=== PATIENT | female | born 1970 | race Caucasian/White ===

== ENCOUNTER → 2017-04-04 | Outpatient (CLI) | payer OTHER ==
[~2017-04-04] MED LIST: ACET325T14 PO; SUMA100T4 PO
[2017-04-04 11:00] LABS: ASPARTATE AMINO TRANSFERASE 17 U/L (15-37); BLOOD UREA NITROGEN 16 mg/dL (7-18)
== END | disposition home or self-care (01) ==
LOC: STAR 10:01
PROVIDERS: ATTEND Urology
DX: Z01.818 Encounter for other preprocedural examination (principal); N39.3 Stress incontinence (female) (male)
CPT/HCPCS: 36415; 80053; 81003; 87086

== ENCOUNTER 2017-04-11 13:27 | Observation (INO) | payer OTHER ==
[~2017-04-11] VITALS: Ht 172.7 cm; Wt 62.0 kg
[2017-04-11] MEDS ORDERED: LACTATED RINGERS 1,000 ML IV SCH (13:37)
[2017-04-11 13:56] VITALS: BP 108/72
[2017-04-11 14:20] LABS: HCG UR LOT HCG7030192
[2017-04-11 14:31] LABS: HCG UR OBC PASS
[2017-04-11] MEDS ORDERED: ESTROGENS CONJUGATED VAG CRM 0.625MG/1G, 30GM ONE (15:29)
[2017-04-11] MEDS ORDERED: AMPICILLIN 2 GM ONE (15:29)
[2017-04-11] MEDS ORDERED: LIDOCAINE/PF 1%, 30ML ONE ×2 (15:29→16:17)
[2017-04-11] MEDS ORDERED: BUPIVACAINE/PF 0.5% ONE (15:29)
[2017-04-11] MEDS ORDERED: NEOMY/POLYMYXIN B GU IRR. 1 ML IRRIG ONE (15:30)
[2017-04-11] MEDS ORDERED: EPINEPHRINE 1 MG/ML, 1ML ONE ×2 (15:30→16:17)
[2017-04-11] MEDS ORDERED: THROMBIN 5,000 UNIT VIAL TP ONE (15:30)
[2017-04-11] MEDS ORDERED: GENTAMICIN 80 MG/2 ML ONE (15:31)
[2017-04-11] MEDS ORDERED: HYDROmorphone 1 MG/ML, 1ML ONE (16:20)
[2017-04-11] MEDS ORDERED: FENTANYL PF 100 MCG/2ML ONE ×2 (16:20)
[2017-04-11] MEDS ORDERED: MIDAZOLAM 1 MG/ML, 2ML ONE (16:20)
[2017-04-11] MEDS ORDERED: LIDOCAINE GEL 2%, 5ML ONE (16:24)
[2017-04-11] MEDS ORDERED: PROPOFOL 10 MG/ML, 20ML ONE (16:25)
[2017-04-11] MEDS ORDERED: ONDANSETRON 2MG/ML, 2ML ONE (16:27)
[2017-04-11] MEDS ORDERED: DEXAMETHASONE 4 MG/ML, 1ML ONE (16:27)
[2017-04-11] MEDS ORDERED: ONDANSETRON 2MG/ML, 2ML IVPush PRN (16:30)
[2017-04-11] MEDS ORDERED: PROMETHAZINE 25 MG/ML, 1ML IV PRN (16:30)
[2017-04-11] MEDS ORDERED: OXYcodone 5 MG/5 ML ORAL.SOL UDC PO PRN (16:30)
[2017-04-11] MEDS ORDERED: FENTANYL PF 100 MCG/2ML IV PRN (16:30)
[2017-04-11] MEDS ORDERED: ACETAMINOPHEN 325 MG TABLET PO PRN ×2 (16:30→19:30)
[2017-04-11] MEDS ORDERED: HYDROmorphone 1 MG/ML, 1ML IV PRN (16:30)
[2017-04-11] MEDS ORDERED: ACETAMINOPHEN 650 MG/20.3 ML UDC ONE (18:28)
[2017-04-11] MEDS ORDERED: ACETAMINOPHEN 325 MG TABLET ONE (18:28)
[2017-04-11] MEDS ORDERED: SUMATRIPTAN 100 MG TABLET PO PRN (19:30)
[2017-04-11] MEDS ORDERED: ACET-1600 PO (20:07)
[2017-04-11] MEDS ORDERED: AMOX1TAB64 PO (20:17)
[2017-04-11] MEDS ORDERED: DOCU-131 PO (20:19)
[2017-04-11] MEDS ORDERED: HYDR2TAB29 PO (20:20)
[2017-04-11] MEDS ORDERED: TRAM50TA2 PO (20:21)
== END 2017-04-11 20:50 | disposition home or self-care (01) ==
LOC: OUT 13:27 → 4NOR 19:23 → OUT 19:24 → 4NOR 19:25
PROVIDERS: ADMIT Urology; ATTEND Urology
DX: N39.3 Stress incontinence (female) (male) (principal)
CPT/HCPCS: 52282; 57288; 81025; C1771; G0378; J0171; J0290; J1100; J1170; J1580; J2250; J2405; J2704; J3010; J3490; J7120